=== PATIENT | female | born 1940 | race Two or more races ===

== ENCOUNTER 2020-09-13 03:45 | Inpatient (IN) | payer MEDICARE, MEDICAID ==
[~2020-09-13] VITALS: Ht 165.1 cm; Wt 76.5 kg
[2020-09-13 05:06] LABS: Basophils # (auto) 0 10 ^3/uL (0-0.2); Basophils % (auto) 0.8 % (0.0-2.0); Eosinophils # (auto) 0 10 ^3/uL (0-0.8); Eosinophils % (auto) 0.6 % (0.0-7.0); Hematocrit 36.5 % (36.0-46.0); Hemoglobin 12.7 g/dL (12.2-16.2); Lymphocytes # (auto) 1.3 10 ^3/uL (0.4-5.4); Mean Corpuscular Hemoglobin 30.9 pg (28.0-32.0); Mean Corpuscular Hgb Conc. 34.8 g/dL (32.0-36.0); Mean Corpuscular Volume 88.7 fL (80.0-100.0); Monocytes # (auto) 0.3 10 ^3/uL (0-1.3); Neutrophils # (auto) 2.1 10 ^3/uL (1.6-8.6); Neutrophils % (auto) 55.6 % (37.0-80.0); Nucleated Red Blood Cells % 0.1 %; Platelet Count (auto) 194 10^3/uL (140-450); Red Blood Cells 4.11 10^6/uL (4.0-5.20); Red Cell Distribution Width 13.7 % (11.8-14.3); White Blood Cell 3.8 10^3/uL (4.4-10.8)
[2020-09-13 05:25] LABS: Alanine Aminotransferase 36 U/L (13-56); Albumin 3.5 g/dL (3.4-5.0); Anion Gap 6 (5-15); Blood Urea Nitrogen 47 mg/dL (7-18); Calcium 7.8 mg/dL (8.5-10.1); Carbon Dioxide 25 mmol/L (21-32); Chloride 97 mmol/L (98-107); Glucose 129 mg/dL (74-106); Magnesium 2.2 mg/dL (1.6-2.6); Potassium 3.6 mmol/L (3.5-5.1); Sodium 128 mmol/L (136-145)
[2020-09-13 05:34] LABS: Alkaline Phosphatase 79 U/L (45-117); Aspartate Aminotransferase 38 U/L (15-37); Bilirubin, Total 0.4 mg/dL (0.2-1.0); GFR African American 39 mL/min; GFR Non-African American 32 mL/min; Total Protein 7.6 g/dL (6.4-8.2)
[2020-09-13 06:33] LABS: INR 0.98 (0.9-1.15); Partial Thromboplastin Time 31.8 sec (23.0-31.2)
[2020-09-13] MEDS ORDERED: DexAMETHasone SOD PHOS 10MG/1ML VIAL INJ IV ONE (08:15)
[2020-09-13] MEDS ORDERED: cefTRIAXone 1GM/50ML D5W 50 ML IV ONE (08:15)
[2020-09-13] MEDS ORDERED: ENOXAPARIN SOD 80 MG/0.8ML SYRINGE SC ONE (08:15)
[2020-09-13] MEDS ORDERED: AZITHROMYCIN 500MG/ 250ML 250 ML IV ONE (08:15)
[2020-09-13] MEDS ORDERED: ACETAMINOPHEN 500 MG TAB PO PRN (09:15)
[2020-09-13] MEDS ORDERED: REMDESIVIR PER PHARMACY 0 ML IV SCH (09:15)
[2020-09-13] MEDS ORDERED: ONDANSETRON HCL 4 MG/2 ML VIAL IV PRN (09:15)
[2020-09-13] MEDS ORDERED: NITROGLYCERIN 0.4 MG SL TAB SL PRN (09:15)
[2020-09-13] MEDS ORDERED: HYDROcodone-ACET 5/325MG TAB PO PRN (09:15)
[2020-09-13] MEDS ORDERED: MORPHINE SULF INJ 2 MG/ML SYRINGE 1ML IV PRN ×2 (09:15)
[2020-09-13 09:18] LABS: CRP High Sensitivity 5.57 mg/dL (< 0.3)
[2020-09-13] MEDS: ENOXAPARIN SOD 40 MG/0.4 ML SYRINGE SC SCH ×2 (09:31→22:12)
[2020-09-13] MEDS: AZITHROMYCIN 500MG/ 250ML 250 ML IV SCH (09:31)
[2020-09-13] MEDS: DexAMETHasone SOD PHOS 10MG/1ML VIAL INJ IV SCH (09:41)
[2020-09-13] MEDS: MEMANTINE HCL 5 MG TAB PO SCH (09:48)
[2020-09-13] MEDS: ZINC SULFATE 220mg CAP or TAB PO SCH (09:48)
[2020-09-13] MEDS: ASCORBIC ACID 1,000 MG TAB PO SCH (09:48)
[2020-09-13] MEDS: CHOLECALCIFEROL (VITD3) 2,000 UNIT CAP/TAB PO SCH (09:48)
[2020-09-13] MEDS: BUDESONIDE (INHALATION) 180 MCG IH IN SCH ×2 (10:00→18:25)
[2020-09-13] MEDS ORDERED: IVERMECTIN 3 MG TAB PO ONE (10:00)
[2020-09-13] MEDS ORDERED: REMDESIVIR 200 MG in NS 210ml LOADING DOSE ADULT IV ONE (15:00)
[2020-09-13] MEDS: ALBUTEROL SULF HFA 90MCG INH 200DOSE IN PRN (18:59)
[2020-09-13 23:50] VITALS: BP 124/70
[2020-09-14] VITALS: BP_SYST 124; BP_SYST 134; BP_DIAS 70; BP_DIAS 74
[2020-09-14] MEDS ORDERED: TRAM50TA2 PO (02:09)
[2020-09-14] MEDS ORDERED: TRAZ50TA2 PO (02:12)
[2020-09-14] MEDS ORDERED: traZODone HCL 50 MG TAB PO ONE (02:45)
[2020-09-14 05:31] LABS: Basophils # (auto) 0 10 ^3/uL (0-0.2); Basophils % (auto) 0.1 % (0.0-2.0); Eosinophils # (auto) 0 10 ^3/uL (0-0.8); Hematocrit 35.6 % (36.0-46.0); Hemoglobin 12.4 g/dL (12.2-16.2); Lymphocytes # (auto) 0.9 10 ^3/uL (0.4-5.4); Lymphocytes % (auto) 26.2 % (10.0-50.0); Mean Corpuscular Volume 88.6 fL (80.0-100.0); Monocytes # (auto) 0.4 10 ^3/uL (0-1.3); Monocytes % (auto) 11.7 % (0.0-12.0); Nucleated Red Blood Cells % 0.1 %; Platelet Count (auto) 216 10^3/uL (140-450); Red Blood Cells 4.02 10^6/uL (4.0-5.20); Red Cell Distribution Width 13.3 % (11.8-14.3); White Blood Cell 3.3 10^3/uL (4.4-10.8)
[2020-09-14 05:54] LABS: Calcium 7.9 mg/dL (8.5-10.1); Potassium 3.7 mmol/L (3.5-5.1)
[2020-09-14 06:00] LABS: Albumin 3.1 g/dL (3.4-5.0); BUN/Creatinine Ratio 36.8; Bilirubin, Total 0.3 mg/dL (0.2-1.0); Total Protein 7.3 g/dL (6.4-8.2)
[2020-09-14] MEDS ORDERED: HYDR12.56 PO (07:35)
[2020-09-14] MEDS ORDERED: AMLO-489 PO (07:35)
[2020-09-14] MEDS: BUDESONIDE (INHALATION) 180 MCG IH IN SCH ×2 (07:54→19:58)
[2020-09-14 08:00] VITALS: BP 117/69
[2020-09-14] MEDS: ENOXAPARIN SOD 40 MG/0.4 ML SYRINGE SC SCH ×2 (10:00→21:33)
[2020-09-14] MEDS: cefTRIAXone 1GM/50ML D5W 50 ML IV SCH (12:43)
[2020-09-14] MEDS: DexAMETHasone SOD PHOS 10MG/1ML VIAL INJ IV SCH (12:43)
[2020-09-14] MEDS: AZITHROMYCIN 500MG/ 250ML 250 ML IV SCH (12:44)
[2020-09-14] MEDS: ZINC SULFATE 220mg CAP or TAB PO SCH (12:44)
[2020-09-14] MEDS: ASCORBIC ACID 1,000 MG TAB PO SCH (12:44)
[2020-09-14] MEDS: CHOLECALCIFEROL (VITD3) 2,000 UNIT CAP/TAB PO SCH (12:44)
[2020-09-14] MEDS: MEMANTINE HCL 5 MG TAB PO SCH (12:44)
[2020-09-14] MEDS: REMDESIVIR 100mg 100 MG in SODIUM CHL 0.9% 230 ML IV SCH (15:00)
[2020-09-14 16:00] VITALS: BP 112/63
[2020-09-14] MEDS: ALBUTEROL SULF HFA 90MCG INH 200DOSE IN PRN (19:59)
[2020-09-15] VITALS: BP 150/68
[2020-09-15 02:37] LABS: Urine Bacteria FEW /hpf (None Seen); Urine Blood Negative /uL (Negative); Urine Specific Gravity 1.008 (1.001-1.035); Urine WBC <1 /hpf (0 - 5)
[2020-09-15 07:34] VITALS: BP 138/76
[2020-09-15] MEDS: BUDESONIDE (INHALATION) 180 MCG IH IN SCH ×2 (09:20→20:19)
[2020-09-15 09:34] LABS: Potassium 3.7 mmol/L (3.5-5.1)
[2020-09-15] MEDS: cefTRIAXone 1GM/50ML D5W 50 ML IV SCH (09:34)
[2020-09-15] MEDS: MEMANTINE HCL 5 MG TAB PO SCH (09:35)
[2020-09-15] MEDS: AZITHROMYCIN 500MG/ 250ML 250 ML IV SCH (09:35)
[2020-09-15] MEDS: CHOLECALCIFEROL (VITD3) 2,000 UNIT CAP/TAB PO SCH (09:35)
[2020-09-15] MEDS: ZINC SULFATE 220mg CAP or TAB PO SCH (09:35)
[2020-09-15] MEDS: ASCORBIC ACID 1,000 MG TAB PO SCH (09:35)
[2020-09-15] MEDS: DexAMETHasone SOD PHOS 10MG/1ML VIAL INJ IV SCH (09:35)
[2020-09-15] MEDS: ENOXAPARIN SOD 40 MG/0.4 ML SYRINGE SC SCH ×2 (09:35→22:00)
[2020-09-15 09:43] LABS: Albumin 3.5 g/dL (3.4-5.0); Bilirubin, Total 0.4 mg/dL (0.2-1.0); Calcium 8.4 mg/dL (8.5-10.1); Total Protein 7.8 g/dL (6.4-8.2)
[2020-09-15] MEDS: ALBUTEROL SULF HFA 90MCG INH 200DOSE IN PRN ×2 (11:04→20:19)
[2020-09-15] MEDS: REMDESIVIR 100mg 100 MG in SODIUM CHL 0.9% 230 ML IV SCH (14:58)
[2020-09-15 16:00] VITALS: BP 126/66
[2020-09-15] MEDS: Ensure HIGH Protein Chocolate 8oz Bottle PO SCH (17:32)
[2020-09-15 21:54] VITALS: BP 146/100
[2020-09-16] VITALS: BP_SYST 146; BP_DIAS 100; BP_DIAS 101
[2020-09-16] MEDS: ALBUTEROL SULF HFA 90MCG INH 200DOSE IN PRN ×2 (07:30→19:45)
[2020-09-16] MEDS: BUDESONIDE (INHALATION) 180 MCG IH IN SCH ×2 (07:30→19:04)
[2020-09-16 08:00] VITALS: BP 149/74
[2020-09-16 08:22] LABS: Calcium 8.2 mg/dL (8.5-10.1); Potassium 3.6 mmol/L (3.5-5.1)
[2020-09-16 08:26] LABS: Albumin 3.2 g/dL (3.4-5.0); BUN/Creatinine Ratio 29.4; Bilirubin, Total 0.4 mg/dL (0.2-1.0); Total Protein 7.2 g/dL (6.4-8.2)
[2020-09-16] MEDS: Ensure HIGH Protein Chocolate 8oz Bottle PO SCH ×3 (08:31→17:39)
[2020-09-16] MEDS: cefTRIAXone 1GM/50ML D5W 50 ML IV SCH (09:13)
[2020-09-16] MEDS: MEMANTINE HCL 5 MG TAB PO SCH (10:21)
[2020-09-16] MEDS: CHOLECALCIFEROL (VITD3) 2,000 UNIT CAP/TAB PO SCH (10:21)
[2020-09-16] MEDS: DexAMETHasone SOD PHOS 10MG/1ML VIAL INJ IV SCH (10:21)
[2020-09-16] MEDS: ASCORBIC ACID 1,000 MG TAB PO SCH (10:21)
[2020-09-16] MEDS: ZINC SULFATE 220mg CAP or TAB PO SCH (10:21)
[2020-09-16] MEDS: ENOXAPARIN SOD 40 MG/0.4 ML SYRINGE SC SCH ×2 (10:22→22:00)
[2020-09-16 16:00] VITALS: BP 138/79
[2020-09-16] MEDS: REMDESIVIR 100mg 100 MG in SODIUM CHL 0.9% 230 ML IV SCH (16:26)
[2020-09-17] VITALS: BP 131/56
[2020-09-17 07:50] LABS: Basophils # (auto) 0 10 ^3/uL (0-0.2); Basophils % (auto) 0.2 % (0.0-2.0); Eosinophils # (auto) 0 10 ^3/uL (0-0.8); Hematocrit 39.2 % (36.0-46.0); Hemoglobin 13.6 g/dL (12.2-16.2); Lymphocytes # (auto) 1.7 10 ^3/uL (0.4-5.4); Lymphocytes % (auto) 36.5 % (10.0-50.0); Mean Corpuscular Hemoglobin 30.7 pg (28.0-32.0); Mean Corpuscular Hgb Conc. 34.6 g/dL (32.0-36.0); Mean Corpuscular Volume 88.9 fL (80.0-100.0); Monocytes # (auto) 0.4 10 ^3/uL (0-1.3); Monocytes % (auto) 7.8 % (0.0-12.0); Neutrophils # (auto) 2.5 10 ^3/uL (1.6-8.6); Neutrophils % (auto) 55.5 % (37.0-80.0); Nucleated Red Blood Cells % 0.3 %; Platelet Count (auto) 270 10^3/uL (140-450); Red Blood Cells 4.41 10^6/uL (4.0-5.20); Red Cell Distribution Width 13.5 % (11.8-14.3); White Blood Cell 4.6 10^3/uL (4.4-10.8)
[2020-09-17] MEDS: Ensure HIGH Protein Chocolate 8oz Bottle PO SCH ×3 (08:00→18:01)
[2020-09-17 08:23] LABS: Albumin 3.1 g/dL (3.4-5.0); Potassium 3.8 mmol/L (3.5-5.1)
[2020-09-17 08:27] LABS: BUN/Creatinine Ratio 21.4; Bilirubin, Total 0.5 mg/dL (0.2-1.0); Total Protein 6.9 g/dL (6.4-8.2)
[2020-09-17 09:20] VITALS: BP 135/83
[2020-09-17] MEDS: AZITHROMYCIN 250 MG TAB PO SCH (09:30)
[2020-09-17] MEDS: ASCORBIC ACID 1,000 MG TAB PO SCH (09:30)
[2020-09-17] MEDS: ZINC SULFATE 220mg CAP or TAB PO SCH (09:30)
[2020-09-17] MEDS: MEMANTINE HCL 5 MG TAB PO SCH (09:30)
[2020-09-17] MEDS: DexAMETHasone SOD PHOS 10MG/1ML VIAL INJ IV SCH (09:30)
[2020-09-17] MEDS: cefTRIAXone 1GM/50ML D5W 50 ML IV SCH (09:30)
[2020-09-17] MEDS: CHOLECALCIFEROL (VITD3) 2,000 UNIT CAP/TAB PO SCH (09:30)
[2020-09-17] MEDS: BUDESONIDE (INHALATION) 180 MCG IH IN SCH ×2 (09:30→19:08)
[2020-09-17] MEDS: ENOXAPARIN SOD 40 MG/0.4 ML SYRINGE SC SCH ×2 (09:30→22:28)
[2020-09-17 15:04] VITALS: BP 115/62
[2020-09-17] MEDS: REMDESIVIR 100mg 100 MG in SODIUM CHL 0.9% 230 ML IV SCH (15:10)
[2020-09-17 16:18] VITALS: BP 130/66
[2020-09-17] MEDS: ALBUTEROL SULF HFA 90MCG INH 200DOSE IN PRN (19:11)
[2020-09-18] VITALS: BP 129/80
[2020-09-18] MEDS: Ensure HIGH Protein Chocolate 8oz Bottle PO SCH ×3 (08:01→18:04)
[2020-09-18] MEDS: cefTRIAXone 1GM/50ML D5W 50 ML IV SCH ×2 (09:00→10:22)
[2020-09-18] MEDS: ENOXAPARIN SOD 40 MG/0.4 ML SYRINGE SC SCH ×2 (10:00→10:23)
[2020-09-18] MEDS: DexAMETHasone SOD PHOS 10MG/1ML VIAL INJ IV SCH ×2 (10:00→10:23)
[2020-09-18] MEDS: BUDESONIDE (INHALATION) 180 MCG IH IN SCH (10:00)
[2020-09-18] MEDS: ZINC SULFATE 220mg CAP or TAB PO SCH (10:23)
[2020-09-18] MEDS: AZITHROMYCIN 250 MG TAB PO SCH (10:23)
[2020-09-18] MEDS: MEMANTINE HCL 5 MG TAB PO SCH (10:23)
[2020-09-18] MEDS: ASCORBIC ACID 1,000 MG TAB PO SCH (10:23)
[2020-09-18] MEDS: CHOLECALCIFEROL (VITD3) 2,000 UNIT CAP/TAB PO SCH (10:23)
== END 2020-09-18 20:06 | disposition home or self-care (01) | DRG 871 ==
LOC: EDBD 03:45 → EDUNIT# 03:45 → ER 03:45 → TELE 03:46 → TELE-WESTW 23:40
PROVIDERS: ADMIT Nurse Practitioner Acute Care; ATTEND Internal Medicine
PROC: XW033E5 Introduction of Remdesivir Anti-infective into Peripheral Vein, Percutaneous Approach, New Technology Group 5 (ICD-10-PCS; principal; 2020-09-13)
DX: A41.89 Other specified sepsis (principal); U07.1 COVID-19; J12.82 Pneumonia due to coronavirus disease 2019; N17.0 Acute kidney failure with tubular necrosis; J96.01 Acute respiratory failure with hypoxia; D68.59 Other primary thrombophilia; E87.1 Hypo-osmolality and hyponatremia; G93.40 Encephalopathy, unspecified; F03.90 Unspecified dementia, unspecified severity, without behavioral disturbance, psychotic disturbance, mood disturbance, and anxiety; E78.5 Hyperlipidemia, unspecified; I13.10 Hypertensive heart and chronic kidney disease without heart failure, with stage 1 through stage 4 chronic kidney disease, or unspecified chronic kidney disease; Z79.82 Long term (current) use of aspirin; N18.31 Chronic kidney disease, stage 3a
CPT/HCPCS: 36415; 36600; 71045; 80053; 81001; 82728; 82805; 83615; 83735; 83880; 84484; 85025; 85379; 85610; 85730; 86141; 87040; 87426; 87804; 93005; 94640; 96365; 96367; 96372; 96375; 97110; 97116; 97163; 97530; 99291; G0378; J0696; J1100; J2405

== ENCOUNTER 2022-09-08 15:22 | Emergency (ER) | payer MEDICARE, MEDICAID ==
[~2022-09-08] VITALS: Ht 157.5 cm; Wt 75.0 kg
[~2022-09-08 15:22] MED LIST: AMLO-489 PO; HYDR12.56 PO; TRAZ50TA2 PO
[2022-09-08 15:40] VITALS: BP 143/75
== END 2022-09-08 20:19 | disposition home or self-care (01) ==
LOC: ER 15:22
DX: S32.401A Unspecified fracture of right acetabulum, initial encounter for closed fracture (principal); W18.39XA Other fall on same level, initial encounter; Y93.89 Activity, other specified; Y92.89 Other specified places as the place of occurrence of the external cause; Y99.8 Other external cause status
CPT/HCPCS: 73700